=== PATIENT | female | born 1985 | race Caucasian/White ===

== ENCOUNTER 2023-04-22 11:52 | Outpatient (CLI) | payer OTHER, SELFPAY | END 2023-04-22 11:53 | disposition home or self-care (01) | PROVIDERS: Visit Provider Obstetrics & Gynecology | DX: N91.2 Amenorrhea, unspecified (principal) | CPT/HCPCS: 36415; 84702 ==

== ENCOUNTER → 2023-04-23 12:47 | Outpatient (CLI) | payer OTHER, SELFPAY ==
--- NOTE | ~2023-04-23 | US_ITS ---
EXAMINATION: US OB <=14 wk fetus w TV INDICATION: N91.2 - Amenorrhea, unspecified TECHNIQUE: Sonography of the pelvis was performed by transabdominal and transvaginal techniques. COMPARISON: Ultrasound pelvis 11/05/2004. RESULT: Uterus: 11.2 x 6.2 x 5.8 cm. Anteverted, retroflexed. Homogenous myometrium. Nabothian cysts, the la rgest measures 1.9 cm. Intrauterine gestational sac: Single present. Mean Sac Diameter: 1.25 cm, corresponding gestational age 6 week 1 days. Yolk sac: Present, not directly measured. Embryo: Not seen. Subgestational hematoma: Absent. Right ovary: 2.9 x 2.0 x 1.4 cm. Vascular flow is present. No adnexal mass. Left ovary: 4.4 x 3.6 x 3.4 cm. Vascular flow is present. 3.7 cm, circumscribed, very mildly lobul ated anechoic cystic lesion in the left ovary, thin septum versus strand-like debris, no internal orlando w, likely benign. Pelvis free fluid: Small free fluid is likely physiologic. IMPRESSION: Single, live intrauterine gestation. Estimated Gestational Age: 6 weeks, 1 days by mean gestational sac diameter. POLLY by ultrasound 2023. Reviewed, dictated and finalized at location K. IMPRESSION: Single, live intrauterine gestation. Estimated Gestational Age: 6 weeks, 1 days by mean gestational sac diameter. E DD by ultrasound 12/16/2023.
== END ==
PROVIDERS: PCP Family Medicine; Visit Provider Obstetrics & Gynecology
DX: N91.2 Amenorrhea, unspecified (principal)
CPT/HCPCS: 76801; 76817

== ENCOUNTER 2023-05-19 10:00 | Outpatient (CLI) | payer OTHER, SELFPAY ==
[2023-05-19 10:31] LABS: Hematocrit 38.3 % (37.0-47.0); Hemoglobin 12.7 g/dL (12.0-15.0); Mean Corpuscular HGB Conc 33.2 g/dl (32-36); Mean Corpuscular Hemoglobin 29.7 pg (26-34); Mean Corpuscular Volume 89.5 fl (80-100); Mean Platelet Volume 10.8 fl (7.4-10.4); Platelet Count Result 233 k/mm3 (150-375); Red Blood Count 4.28 M/mm3 (4.2-5.4); Red Cell Distribution Width 12.7 % (11.5-14.5); White Blood Count 6.5 K/mm3 (4.5-10.0)
== END 2023-05-19 10:01 | disposition home or self-care (01) ==
LOC: ANHSURGERY 10:03
PROVIDERS: PCP Family Medicine; Visit Provider Obstetrics & Gynecology
DX: Z01.818 Encounter for other preprocedural examination (principal); O02.1 Missed abortion
CPT/HCPCS: 36415; 85027; 86900; 86901

== ENCOUNTER 2023-05-21 00:09 | Day surgery (SDC) | payer OTHER, SELFPAY ==
--- NOTE | 2023-05-18 13:01 | PC.NURSE ---
Report to the Outpatient Waiting Room, entrance under the green pavilion located off [facility], at time _0730 on date __05/21/23 . Planned Procedure Time: __929 . Time changes happen often and if your time is changed the preop area will call you the afternoon before. - You and your visitor will be asked to self-screen and do not enter if you have any COVID symptoms. - A mask is optional within the hospital at this time. Patients may have clear liquids (water, carbonated beverages, clear teas, apple juice) until 3 hours prior to surgery with a maximum of 20 ounces. - No food from midnight until time of surgery - Infants may have breast milk until 4 hours before surgery, infant formula 6 hours prior to surgery. - Children will be allowed to drink immediately following surgery. If applicable, please bring a bottle or sippy cup to assist with drinking. Juice, water, soda, and popsicles are readily available. For infants on formula, please bring formula the day of surgery. Pacifiers are allowed. Take the following medications with a SIP of water the morning of surgery: __NONE DO NOT STOP ANY OF YOUR OTHER PRESCRIPTION MEDICATIONS PRIOR TO SURGERY ?EXCEPT THE FOLLOWING Medications to discontinue per physician _NONE Please no make-up, nail mongolian, hairspray, perfume, deodorant, or body powder the day of surgery. No jewelry (including any body piercings) or valuables the day of surgery, leave them at home. Please take a shower or bath the night before, or the morning of, surgery with an antibacterial soap. Wear comfortable, loose fitting clothing. Children are encouraged to wear pajamas. - Jewelry must be removed prior to entering the operating room. Rings and piercings that are not removed may be cut off. - The hospital will not accept responsibility for valuables. - Please leave all valuables, including medications, at home the day of surgery. If you are going home after surgery, a licensed livery car driver must drive you home. - NO public transportation without another adult if you receive anesthesia. - We recommend that an adult stay with you for 24 hours following discharge. - We also recommend that you do not drive, make important decision, drink alcoholic beverages, or take any drugs that were not prescribed by your health care provider for at least 24 hours after your discharge time. For Pediatric surgeries, we recommend two adults accompany the child home. Follow any additional instructions given to you from your surgeon. If you or anyone in your household have experienced Covid symptoms in the past week, please notify your surgeon or the nurse liaison at the phone number below for possible testing. Telephone instructions given to ___PATIENT and asked if any additional questions and then verbalized understanding. Patient advised to call surgeon office or pre surgery nurse liaison [phone] if any additional questions. Report to the Outpatient Waiting Room, entrance under the green pavilion located off [facility], at time on date . Planned Procedure Time: . Time changes happen often and if your time is changed the preop area will call you the afternoon before. - You and your visitor will be asked to self-screen and do not enter if you have any COVID symptoms. - A mask is optional within the hospital at this time. Patients may have clear liquids (water, carbonated beverages, clear teas, apple juice) until 3 hours prior to surgery with a maximum of 20 ounces. - No food from midnight until time of surgery - Infants may have breast milk until 4 hours before surgery, formula 6 hours prior to surgery. - Children will be allowed to drink immediately following surgery. If applicable, please bring a bottle or sippy cup to assist with drinking. Juice, water, soda, and popsicles are readily available. For infants on formula, please usman
[2023-05-18 13:21] VITALS: BMI 40.7
[2023-05-21 07:50] VITALS: BP 118/64; PULSE 87; RESP 16; TEMP 36.2; O2SAT 100
--- NOTE | 2023-05-21 08:40 | WPDANESEPPF ---
Anes - Initial Pre Proc Eval Procedure: Operation Date: 05/21/23 09:30 Proposed Procedures p Suction Dilatation and Curettage - Brian Snider MD Date/Time: 05/21/23 08:40 Surgeon: Brian Snider MD Pre Op Diagnosis: missed AB Patient Data Age: 37 Gender: F Height: 1.6 m Weight: 104.35 kg Allergies Allergy/AdvReac Type Severity Reaction Status Date / Time No Known Allergies Allergy Verified 05/21/23 08:07 Home Medications Medication Instructions Recorded Confirmed Type valacyclovir 500 mg tablet 500 mg PO TID PRN hsv 05/21/23 05/21/23 History Patient hx anesthesia problems: none Family hx anesthesia problems: none Results Review: All pre-operative results and documents have been reviewed as part of the pre-operative evaluation. [facility] Past Medical History Medical History Anxiety Epilepsy HSV-2 (herpes simplex virus 2) infection Intramural uterine fibroid 2019 Kidney stone Mammogram normal 07/15/21 benign/recommend screening Nervous breakdown at 21 yo Family History Family History Grandparent Breast cancer maternal grandmother Ovarian cancer maternal grandmother Carcinoma of colon maternal grandmother Social History Social History Smoking status: Never smoker Alcohol intake: current Alcohol use details: ONE DRINK PER MONTH Substance use: former Substance use type: marijuana Last use: 2015 Lack of Transportation: No Lack of Food: Never True Current Housing: I Have Housing Concerned About Future Housing: No Difficulty Paying Gas/Electric Bills: No Difficulty Paying for Meds: No Currently Unemployed: No Education: Associate Degree Difficulty w/ Childcare or Family Care: No Living arrangements: with family Occupation/Education: occupation 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 Gender identity (if verbalized by the patient): Female Sexual Orientation (if Verbalized by the Patient): Straight or Heterosexual Spiritual care concerns: No Anes - Eval Final PreProcedure Day of Procedure 05/21/23 08:40 Patient weight: morbidly obese Heart: regular rate and rhythm Lungs: clear to auscultation Airway: Mallampati scale class II Neurological: alert and oriented Last oral intake: >/= 8 hours ASA classification: III Emergent: no Anesthetic plan: proceed Anesthesia type and monitoring: general GIVS and standard monitoring Results Review: All pre-operative results and documents have been reviewed as part of the pre-operative evaluation. Informed Consent: The patient's anesthetic plan and its attendant risks and benefits were discussed with the patient/family/POA. Questions were solicited and answers provided to the satisfaction of the patient/family/POA.
--- NOTE | 2023-05-21 08:40 | PM.IMHP ---
H&P: HPI History of Present Illness Date/Time: 05/21/23 08:40 37-year-old 4 para 1021 presents for uterine curettage. Unplanned but desired earlier with 6 week intrauterine with no cardiac activity. She has had some cramping but no significant bleeding. Does have a history of 2 prior miscarriages and 1 vaginal delivery. Chief Complaint: Missed Review of Systems Review of Systems: All systems reviewed & are unremarkable except as noted in HPI and below PMFSH Past Medical History Medical History Anxiety Epilepsy HSV-2 (herpes simplex virus 2) infection Intramural uterine fibroid 2019 Kidney stone Mammogram normal 07/15/21 benign/recommend screening Nervous breakdown at 21 yo Family History Family History Grandparent Breast cancer maternal grandmother Ovarian cancer maternal grandmother Carcinoma of colon maternal grandmother Social History Social History Smoking status: Never smoker Alcohol intake: current Alcohol use details: ONE DRINK PER MONTH Substance use: former Substance use type: marijuana Last use: 2015 Lack of Transportation: No Lack of Food: Never True Current Housing: I Have Housing Concerned About Future Housing: No Difficulty Paying Gas/Electric Bills: No Difficulty Paying for Meds: No Currently Unemployed: No Education: Associate Degree Difficulty w/ Childcare or Family Care: No Living arrangements: with family Occupation/Education: occupation 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 Gender identity (if verbalized by the patient): Female Sexual Orientation (if Verbalized by the Patient): Straight or Heterosexual Spiritual care concerns: No Meds Home Medications and Allergies Home Medications Medication Instructions Recorded Confirmed Type valacyclovir 500 mg tablet 500 mg PO TID PRN hsv 05/21/23 05/21/23 History Allergies Allergy/AdvReac Type Severity Reaction Status Date / Time No Known Allergies Allergy Verified 05/21/23 08:07 Exam Const: General: cooperative Resp: Effort & Inspection: normal respiratory effort Auscultation: clear to auscultation bilaterally Cardio: Rate: regular rate Rhythm: regular rhythm GI: Inspection: normal to inspection Auscultation: normal bowel sounds : External Female Exam: normal external appearance Speculum Exam - Vagina: normal appearance of the vagina Speculum Exam - Cervix: normal appearance of the cervix Bimanual exam- vagina & uterus: enlarged (6-8 week size) Bimanual Exam- Adnexa, other: normal adnexae Assessment and Plan Assessment and plan (1) Missed with demise before 20 completed weeks of gestation: Code(s): O02.1 - Missed Status: Acute Assessment and Plan: Proceed with suction curettage
[2023-05-21] MEDS: LACTATED RINGERS 1,000 ML 30 ML IV CONT (08:43)
--- NOTE | 2023-05-21 08:43 | WPDHPUPDATE1 ---
History and Physical Update Update Date/Time: 05/21/23 08:43 History and Physical has been reviewed, including an updated exam of the patient. There are NO changes in the patient's condition. Risks, benefits, and alternatives have been discussed and questions answered. Patient agrees to proceed with procedure.
[2023-05-21] MEDS: ACETAMINOPHEN 500 MG TABLET 1000 MG PO (09:19)
[2023-05-21 09:48] VITALS: BP 135/90; PULSE 93; RESP 16; O2SAT 95
--- NOTE | 2023-05-21 09:49 | W.PM.PROC2 ---
Procedure Note - Detailed Date of Procedure 05/21/23 Pre-op Diagnosis missed AB Post-op Diagnosis Same Procedure Performed 1. Suction curettage Surgeon Brian Snider MD Anesthesia General Findings moderate amount of products of conception Description of Procedure patient prepped and draped in usual manner for this procedure. Cervix dilated to allow 8mm suction curette to be placed. This was then placed and tissue was removed without difficulty. Sharp curette throughout with no remaining tissue. Suction of small amount of clot some bleeding at this point. There was no further bleeding and patient tolerated procedure well. Estimated Blood Loss 50 Drains No Packing No Pathology Yes Complications No immediate complications Condition Stable Disposition PACU [facility] Billing Surgery - Charge Forward: Surgery Billing
[2023-05-21] MEDS: fentaNYL CITRATE INJ (*CRX) 100 MCG/2 ML VIAL 25 MCG IV PUSH ×4 (10:00→10:09)
[2023-05-21] MEDS: KETOROLAC 15 MG/ML VIAL (*BKC) IV PUSH (10:13)
[2023-05-21 10:15] VITALS: BP 114/66; PULSE 78; RESP 16; O2SAT 95
[2023-05-21] MEDS: RHO(D) IMMUNE GLOBULIN 300 MCG/2 ML SYRINGE IM (10:29)
[2023-05-21] MEDS: oxyCODONE HCL (*CRX) 5 MG TAB IR PO (10:39)
[2023-05-21 10:45] VITALS: BP 121/62; PULSE 73; RESP 14
[2023-05-21 11:15] VITALS: BP 124/69; PULSE 78; RESP 14
[2023-05-21 11:40] VITALS: BP 116/71; PULSE 75; RESP 14
== END 2023-05-21 11:53 | disposition home or self-care (01) ==
PROVIDERS: PCP Family Medicine; Visit Provider Obstetrics & Gynecology
PROC: (CPT 59820; principal; 2023-05-21 09:30)
DX: O02.1 Missed abortion (principal); F41.9 Anxiety disorder, unspecified; B00.9 Herpesviral infection, unspecified; F12.90 Cannabis use, unspecified, uncomplicated
CPT/HCPCS: 59820; 36415; 85027; 85461; 86850; 86900; 86901; 88305; 90384; A9270; J1885; J2250; J2704; J2790; J3010; J7120

== ENCOUNTER 2024-08-10 08:51 | Outpatient (CLI) | payer BC, SELFPAY ==
--- NOTE | ~2024-08-10 | MMUS_ITS ---
EXAMINATION: MM diagnostic diana BI w taylor, US breast BI limited HISTORY: Breast lump TECHNIQUE: 3-D tomosynthesis images of the breasts were performed and synthetic 2-D images were gener ated. CAD analysis was submitted and interpreted. High resolution limited bilateral breast ultrasound was performed. COMPARISON: 01/20/2024, recent MRI dated 06/20/2024 BREAST PARENCHYMAL COMPOSITION:Not Dense. The breasts are almost entirely fatty FINDINGS: MAMMOGRAPHIC FINDINGS: Parenchymal pattern of the breasts is unchanged from prior mammogram. No suspicious mass lesion or di stortion seen. No suspicious microcalcification. ULTRASOUND: Scattered areas of concern at the left breast 3:00 position, and right breast 9:00 and 12:00 position s was performed. No sonographic lesion identified in the regions scanned. No solid or cystic lesion i dentified. No dilated ducts evident. IMPRESSION: No mammographic or sonographic abnormalities are seen. Stable radiographic examination since 01/20/20 24. Please note that negative mammography/sonography should not preclude biopsy of a suspicious lesio n seen on recent breast MR. Correlation with the prior MR examination and report is recommended. BI-RADS Category 1: Negative Reviewed, dictated and finalized at location . ESSIONAL NURSING TUTOR IMPRESSION: No mammographic or sonographic abnormalities are seen. Stable radiographic exa mination since 01/20/2024. Please note that negative mammography/sonography shou ld not preclude biopsy of a suspicious lesion seen on recent breast MR. Correla tion with the prior MR examination and report is recommended. BI-RADS Category 1: Negative
== END 2024-08-10 08:52 | disposition home or self-care (01) ==
LOC: MICIMG 08:52
PROVIDERS: PCP Surgery; Visit Provider Surgery
DX: N63.25 Unspecified lump in the left breast, overlapping quadrants (principal)
CPT/HCPCS: 76642; 77062; 77066; G0279

== ENCOUNTER 2024-12-08 10:49 | Outpatient (CLI) | payer BC, SELFPAY ==
--- NOTE | ~2024-12-08 | MR_ITS ---
EXAMINATION: MR breast BI wo/w con INDICATION: Six-month follow-up TECHNIQUE: Axial VIBRANT pre and dynamic post contrast, Sagittal VIBRANT post contrast, Axial T2 STIR ASSET COMPARISON: 06/20/2024 CONTRAST: Multihance, 20 cc BREAST COMPOSITION: Scattered fibroglandular tissue FINDINGS: RIGHT BREAST: There is mild background parenchymal enhancement. There is some patchy probable normal fibroglandular enhancement in the right breast, which appears to be similar to prior exam. No patholo gically enlarged axillary or internal mammary lymph nodes are identified. LEFT BREAST: There is mild background parenchymal enhancement. No abnormal enhancement is present aft er contrast administration. No pathologically enlarged axillary or internal mammary lymph nodes are i dentified. IMPRESSION: Patchy nonmasslike enhancement in the right breast probably represent fibroglandular tissue, similar in appearance overall to prior exam. No overt progression or suspicious lesion evident. Additional s ix-month follow-up MR advised to assure continued stability. BI-RADS category 3, probably benign findings. Reviewed, dictated and finalized at location [facility]ICATING SUPERVISOR IMPRESSION: Patchy nonmasslike enhancement in the right breast probably represent fibrogla ndular tissue, similar in appearance overall to prior exam. No overt progressio n or suspicious lesion evident. Additional six-month follow-up MR advised to as sure continued stability. BI-RADS category 3, probably benign findings.
--- OUTSIDE RECORDS SUMMARY | 2024-12-08 12:28 | XMS_ITS | Patient Health Summary ---
Author Organization [facility] [employer] Address [address] [place] [address] Care Team Providers Care Chief Engineer Drilling And Recovery Name Role Phone Doris Ruano DO Primary Care Provider [phone] Note from [facility],non-owned Affiliates and Associated Physician Practices is amultiple site organization consisting of ambulatory clinics and hospital sitesin [place], [place], [place] and [place]. This disclosure is being madepursuant to the Care Everywhere program and may not contain all information available regarding this patient. Last updated 18.[facility] [employer] Allergies No known active allergies Medications * Be aware that medications may not be up to date on this document. Alwaysverify current medications with the patient. 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 History of kidney stones 10/04/2024 Uterine leiomyoma 10/04/2024 Social History Tobacco Use Types Packs/Day Years Used Date Smoking Tobacco: Never Smokeless Tobacco: Never Tobacco Cessation:Counseling Given: No Alcohol Use Standard Drinks/Week Comments Never 0 (1 standard drink = 0.6 oz pur e alcohol) Sex and Gender Information Value Date Recorded Sex Assigned at Not on file Gender Identity Not on file Sexual Orientation Not on file Last Filed Vital Signs Vital Sign Reading Time Taken Comments Blood Pressure 107/72 10/03/2024 10:44 AM LIME BOILER Pulse 70 10/03/2024 10:44 AM LIME BOILER Temperature - - Respiratory Rate 18 10/03/2024 10:44 AM LIME BOILER Oxygen Saturation - - Inhaled Oxygen Concentration - - Weight 108.9 kg (240 lb) 10/03/2024 10:44 AM LIME BOILER Height 160 cm (5' 3 ) 10/03/2024 10:44 AM LIME BOILER Body Mass Index 42.51 10/03/2024 10:44 AM LIME BOILER Procedures * ANTIPHOSPHOLIPID ANTIBODY PANEL(Performed 10/03/2024) Results * ANTIPHOSPHOLIPID ANTIBODY PANEL (10/03/2024 12:25 PM LIME BOILER) [facility] Cardiolipin Antibody IgG <2.0 GPL-U/mL [facility] Comment: Value Interpretation ----- < 20.0 Antibody not detected > or = 20.0 Antibody detected The antiphospholipid antibody syndrome (APS) is a clinical-pathologic correlation that includes a clinical event (e.g. arterial or venous thrombosis, morbidity) and persistent positive antiphospholipid antibodies (IgM, IgG Cardiolipin or b2GPI antibodies greater than the 99th percentile; or a lupus anticoagulant). International consensus guidelines for APS suggest waiting at least 12 weeks before retesting to confirm antibody persistence. The [facility] immunological classification criteria for systemic lupus erythematosus (SLE) include testing for isotype IgA, which has yet to be incorporated into APS criteria. Low level antiphospholipid antibodies may sometimes be detected in the setting of infection, drug therapy or aging. For additional information, please refer to http://education.Hostmonster/faq/YWA037 (This link is being provided for informational/ educational purposes only.) Cardiolipin Antibody IgM <2.0 MPL-U/mL [facility] Comment: Value Interpretation ----- < 20.0 Antibody not detected > or = 20.0 Antibody detected The antiphospholipid antibody syndrome (APS) is a clinical-pathologic correlation that includes a clinical event (e.g. arterial or venous thrombosis, morbidity) and persistent positive antiphospholipid antibodies (IgM, IgG Cardiolipin or b2GPI antibodies greater than the 99th percentile; or a lupus anticoagulant). International consensus guidelines for APS suggest waiting at least 12 weeks before retesting to confirm antibody persistence. The [facility] immunological classification criteria for systemic lupus erythematosus (SLE) include testing for isotype IgA, which has yet to be incorporated into APS criteria. Low level antiphospholipid antibodies may sometimes be detected in the setting of infection, drug therapy or aging. For additional information, please refer to http://Instacover.Hostmonster/faq/UDG787 (This link is being provided for informational/ educational purposes only.) Cardiolipin Antibody IgA <2.0 APL-U/mL [facility] Comment: Value Interpretation ----- < 20.0 Antibody not detected > or = 20.0 Antibody detected The antiphospholipid antibody syndrome (APS) is a clinical-pathologic correlation that includes a clinical event (e.g. arterial or venous thrombosis, morbidity) and persistent positive antiphospholipid antibodies (IgM, IgG Cardiolipin or b2GPI antibodies greater than the 99th percentile; or a lupus anticoagulant). International consensus guidelines for APS suggest waiting at least 12 weeks before retesting to confirm antibody persistence. The [facility] immunological classification criteria for systemic lupus erythematosus (SLE) include testing for isotype IgA, which has yet to be incorporated into APS criteria. Low level antiphospholipid antibodies may sometimes be detected in the setting of infection, drug therapy or aging. For additional information, please refer to http://[facility] [facility]/faq/FIU508 (This link is being provided for informational/ educational purposes only.) Lupus Anticoagulant NOT DETECTED [facility] Comment: A Lupus Anticoagulant is not detected. For more information on this test, go to: http://Instacover.Hostmonster/faq/FRF38z1 (This link is being provided for informational/ educational purposes only.) This interpretation is based on the following test results: PTT LA Screen 32 < OR = 40 sec [facility] dRVVT Screen 43 < OR = 45 sec [facility] Beta-2 Glycoprotein I Antibody IgG <2.0 U/mL [facility] Comment: Value Interpretation ----- < 20.0 Antibody not detected > or = 20.0 Antibody detected The antiphospholipid antibody syndrome (APS) is a clinical-pathologic correlation that includes a clinical event (e.g. arterial or venous thrombosis, morbidity) and persistent positive antiphospholipid antibodies (IgM, IgG Cardiolipin or b2GPI antibodies greater than the 99th percentile; or a lupus anticoagulant). International consensus guidelines for APS suggest waiting at least 12 weeks before retesting to confirm antibody persistence. The [facility] immunological classification criteria for systemic lupus erythematosus (SLE) include testing for isotype IgA, which has yet to be incorporated into APS criteria. Low level antiphospholipid antibodies may sometimes be detected in the setting of infection, drug therapy or aging. For additional information, please refer to http://Instacover.Hostmonster/faq/DSK420 (This link is being provided for informational/ educational purposes only.) Beta-2 Glycoprotein I Antibody IgA <2.0 U/mL [facility] Comment: Value Interpretation ----- < 20.0 Antibody not detected > or = 20.0 Antibody detected The antiphospholipid antibody syndrome (APS) is a clinical-pathologic correlation that includes a clinical event (e.g. arterial or venous thrombosis, morbidity) and persistent positive antiphospholipid antibodies (IgM, IgG Cardiolipin or b2GPI antibodies greater than the 99th percentile; or a lupus anticoagulant). International consensus guidelines for APS suggest waiting at least 12 weeks before retesting to confirm antibody persistence. The [facility] immunological classification criteria for systemic lupus erythematosus (SLE) include testing for isotype IgA, which has yet to be incorporated into APS criteria. Low level antiphospholipid antibodies may sometimes be detected in the setting of infection, drug therapy or aging. For additional information, please refer to http://Instacover.Hostmonster/faq/HKC904 (This link is being provided for informational/ educational purposes only.) Beta-2 Glycoprotein I Antibody IgM <2.0 U/mL [facility] Comment: Value Interpretation ----- < 20.0 Antibody not detected > or = 20.0 Antibody detected The antiphospholipid antibody syndrome (APS) is a clinical-pathologic correlation that includes a clinical event (e.g. arterial or venous thrombosis, morbidity) and persistent positive antiphospholipid antibodies (IgM, IgG Cardiolipin or b2GPI antibodies greater than the 99th percentile; or a lupus anticoagulant). International consensus guidelines for APS suggest waiting at least 12 weeks before retesting to confirm antibody persistence. The [facility] immunological classification criteria for systemic lupus erythematosus (SLE) include testing for isotype IgA, which has yet to be incorporated into APS criteria. Low level antiphospholipid antibodies may sometimes be detected in the setting of infection, drug therapy or aging. For additional information, please refer to http://education.Adnexus.VideoNot.es/faq/XWA287 (This link is being provided for informational/ educational purposes only.) Test Performed at: [facility] [address] [address] [facility] Zahraa ALBRECHT 10/03/2024 12:2 5 PM LIME BOILER 10/03/2024 12:28 PM LIME BOILER Yvette Long MD LAB - SEROLOGY ORDER [facility] [id number] [place] [address] Care Teams Chief Engineer Drilling And Recovery Relationship Specialty Start Date End Date Doris Ruano DO [address] [place] [address] PCP - General Family Medicine 04/04/24
--- OUTSIDE RECORDS SUMMARY | 2024-12-08 12:28 | XMS_ITS | Patient Health Record ---
Author Organization 1 OF Vikki fernandez [facility] Address [address] [place] [address] Care Team Providers Care Oracle Database Administrator Name Role Phone Kiana Paiz Primary Care Provider UnavailVinicio Hernandez Unavailable Reason For Referral No Information Medications Medication SIG (Take, Route, Fr equency, Duration) Notes Start Date End Date Status Ibuprofen 800 MG 1 tablet with food o r milk as needed Orally Three times a day 03/25/2019 Active Social History Tobacco Use: Social History Observation Description Date Details (start date - stop date) Never Smoker NA - NA Tobacco Use/Smoking Question Answer Notes Are you a nonsmoker Plan Of Treatment No Information Insurance Providers Payer Name Payer Address Payer Phone Subscriber Number Group Number Insured Name Patient Relationship to Insured Coverage Start Date Coverage End Date [facility] [address] [place] [address] [id number] Dajuan James Spouse - patient is the spouse of the insured Medical (General) History Medical History History ICD Code Vein Problems Surgical History Surgery Date(Month/Year)
--- OUTSIDE RECORDS SUMMARY | 2024-12-08 12:28 | XMS_ITS | Clinical Summary ---
Author Organization [facility] Address [address] [place] [address] Care Team Providers Care Clinical Care Manager Name Role Phone Doris Ruano DO Primary Care Provider [phone] Source Comments [facility],non-owned Affiliates and Associated Physician Practices is amultiple site organization consisting of ambulatory clinics and hospital sitesin [place], [place], [place] and [place]. This disclosure is being madepursuant to the Care Everywhere program and may not contain all information available regarding this patient. Last updated 18.[facility] Allergies No known active allergies Medications * Be aware that medications may not be up to date on this document. Alwaysverify current medications with the patient. 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 Her first was TAB. She had term delivery of a healthy 9 year old by . All subsequent pregnancies were with the same FOB who has a normal daughter. Her later SAB's were 10, 12 weeks and missed caught on early US. Chromosomes done on POC was 46XX. There is no family history of genetic issues. She does have severe metrorrhagia and twice was scheduled for ablation and tubal ligation. There is note of a small uterine fibroid in the cavity. We discussed several issues to address. She technically meets criteria for recurrent loss. It is unclear if uterine environment is playing a big role and additional evaluation of her cavity and potential treatment would be beneficial. Ideally, this could be done with LOUISA who can then also discuss potential role of IVF-surrogate, if the cavity is beyond repair. We also discussed age related risk of aneuploidy and elevated risk for SAB and infertility. She will see genetic counselor to discuss maternal and paternal evaluation and carrier panels. She has no medical history of significance. Routine screening labs are not warranted and not drawn today. She has had normal CBC, CMP, hgba1c, thrombophilia workup in the past that are negative. APAS was drawn. If she pursues and is successful getting through the first trimester, I anticipate she will do well. She will need further discussion about risk of GDM and early screening and discussion about mode of delivery. History of kidney stones 10/04/2024 Assessment & Plan (10/04/2024 9:28 AM [facility]): She is at risk of recurrence. Uterine leiomyoma 10/04/2024 Encounters Date Type Department Care Team Description 10/10/2024 Telephone [facility] MATERNAL/ EVALUATION UNIT [address] [place] [address] Nelly Ko GC Referral 10/03/2024 11:30 AM EMERGENCY ROOM ORDERLY - 10/03/2024 11:59 PM EMERGENCY ROOM ORDERLY Hospital Encounter [facility] [address] [place] [id number] Yvette Long MD Discharge Disposition: Home or Self Care 10/03/2024 10:30 AM EMERGENCY ROOM ORDERLY - 10/03/2024 11:29 AM EMERGENCY ROOM ORDERLY Hospital Encounter [facility] [address] [place] [id number] Yvette Long MD Discharge Disposition: Home or Self Care from Last 3 Months Family History Medical History Relation Name Comments Cancer - Breast Maternal Grandmother Cancer - Ovarian Maternal Grandmother Brain Tumor Paternal Grandmother Cancer - Colon Paternal Grandmother Diabetes; unknown type Paternal Grandmother Relation Name Status Comments Maternal Grandmother Paternal Grandmother Social History Tobacco Use Types Packs/Day Years [...] Comments Blood Pressure 107/72 10/03/2024 10:44 AM EMERGENCY ROOM ORDERLY Pulse 70 10/03/2024 10:44 AM EMERGENCY ROOM ORDERLY Temperature - - Respiratory Rate 18 10/03/2024 10:44 AM EMERGENCY ROOM ORDERLY Oxygen Saturation - - Inhaled Oxygen Concentration - - Weight 108.9 kg (240 lb) 10/03/2024 10:44 AM EMERGENCY ROOM ORDERLY Height 160 cm (5' 3 ) 10/03/2024 10:44 AM EMERGENCY ROOM ORDERLY Body Mass Index 42.51 10/03/2024 10:44 AM EMERGENCY ROOM ORDERLY Plan of Treatment Health Maintenance Due Date Last Done Comments LIPID TESTING 1984 PAP SMEAR 1984 HIV SCREENING 1999 HEPATITIS C SCREENING 07/13/2002 DTAP/TDAP/TD VACCINES (1 - Tdap) 2003 HEPATITIS B VACCINE (1 of 3 - 19+ 3-dose series) 2003 COVID-19 VACCINE (3 - 2023- season) 2024 10/12/2020, 09/21/2020 DEPRESSION SCREENING 10/05/2024 MAMMOGRAM 01/19/2026 01/20/2024, 01/03, 07/24/2022, Additional history exists ZOSTER VACCINE (1 of 2) 2034 INFLUENZA VACCINE Completed 06/28/2024, , 12/26/2022, Additional history exists HIB VACCINE Aged Out No longer eligi ble based on patient's age to complete this topic HPV VACCINE Aged Out No longer eligi ble based on patient's age to complete this topic MENINGOCOCCAL (Group B) VACCINE Aged Out No longer eligible based on patient's age to complete this topic MENINGOCOCCAL VACCINE Aged Out No melina tianna eligible based on patient's age to complete this topic PNEUMOCOCCAL VACCINE Aged Out No long er eligible based on patient's age to complete this topic Procedures Procedure Name Priority Date/Time Associated Diagnosis Comments ANTIPHOSPHOLIPID ANTIBODY PANEL 10/03/2024 12:25 PM EMERGENCY ROOM ORDERLY from Last 3 Months Results * ANTIPHOSPHOLIPID ANTIBODY PANEL (10/03/2024 12:25 PM EMERGENCY ROOM ORDERLY) Cardiolipin Antibody IgG <2.0 GPL-U/mL [facility] Comment: [...] aging. For additional information, please refer to http://education.Vantage Analytics/faq/WIQ199 (This link is being provided for informational/ [...] aging. For additional information, please refer to http://Forge Medical/WellTrackOneq/YTJ342 (This link is being provided for informational/ [...] aging. For additional information, please refer to http://[employer]/WellTrackOneq/PBB651 (This link is being provided for informational/ educational purposes only.) Lupus Anticoagulant NOT DETECTED [facility] Comment: A Lupus Anticoagulant is not detected. For more information on this test, go to: http://Cintric.Vantage Analytics/faq/XBT33l3 (This link is being provided for informational/ [...] aging. For additional information, please refer to http://Cintric.Air [employer]otics.Next Points/faq/JVA756 (This link is being provided for informational/ [...] aging. For additional information, please refer to http://Cintric.Vantage Analytics/faq/GOY966 (This link is being provided for informational/ [...] aging. For additional information, please refer to http://education.Air Robotics.Next Points/faq/FFW624 (This link is being provided for informational/ educational purposes only.) Test Performed at: [facility] [id number] [place] [address] CASS Zahraa ALBRECHT 10/03/2024 12:2 5 PM EMERGENCY ROOM ORDERLY 10/03/2024 12:28 PM EMERGENCY ROOM ORDERLY Yvette Long MD LAB - SEROLOGY ORDER [facility] [address] [place] [address] from Last 3 Months Care Teams Clinical Care Manager Relationship Specialty Start Date End Date Doris Ruano DO [address] [place] [id number] PCP - General Family Medicine 04/04/24
--- OUTSIDE RECORDS SUMMARY | 2024-12-08 12:28 | XMS_ITS | Referral Summary ---
Author Organization [facility] Address [address] [place] [address] Care Team Providers Care Library Technician Name Role Phone Doris Ruano DO Primary Care Provider [phone] Source Comments [facility],non-owned Affiliates and Associated Physician Practices is amultiple site organization consisting of ambulatory clinics and hospital sitesin [place], [place], [place] and [place]. This disclosure is being madepursuant to the Care Everywhere program and may not contain all information available regarding this patient. Last updated 18.[facility] Encounters Date Type Department Care Team Description 10/10/[address] [facility] MATERNAL/ EVALUATION UNIT [facility] [place] [address] Nelly Ko GC Referral 10/03/2024 11:30 AM [facility] [employer] [facility] [employer] - 10/03/2024 11:59 PM [facility] [employer] Hospital Encounter [facility] [address] [place] [address] Yvette Long MD Discharge Disposition: Home or Self Care 10/03/2024 10:30 AM [facility] [employer] - 10/03/2024 11:29 AM [facility] [employer] Hospital Encounter [facility] [address] [place] [address] Yvette Long MD Discharge Disposition: Home or Self Care from Last 3 Months Allergies No known active allergies Medications * Be aware that medications may not be up to date on this document. Alwaysverify current medications with the patient. Medication Sig Dispensed Refills Start Date End Date Status multivitamin daily tablet Take 1 (one) tablet by mouth daily with food Active vitamin D, ergocalciferol, (Drisdol) 1.25 MG (28634 UT) capsule Take 1 (one) capsule by mouth every 30 days Active Active Problems Problem Noted Date Diagnosed Date History of multiple miscarriages 10/04/2024 Assessment & Plan (10/04/2024 9:29 AM [facility] [employer]): Yesenia is desiring . Her first was [...] 10/04/2024 Assessment & Plan (10/04/2024 9:28 AM [facility] [employer]): She is at risk of recurrence. Uterine leiomyoma 10/04/2024 Social History Tobacco Use [...] Comments Blood Pressure 107/72 10/03/2024 10:44 AM [facility] [employer] Pulse 70 10/03/2024 10:44 AM [facility] [employer] Temperature - - Respiratory Rate 18 10/03/2024 10:44 AM [facility] [employer] Oxygen Saturation - - Inhaled Oxygen Concentration - - Weight 108.9 kg (240 lb) 10/03/2024 10:44 AM [facility] [employer] Height 160 cm (5' 3 ) 10/03/2024 10:44 AM [facility] [employer] Body Mass Index 42.51 10/03/2024 10:44 AM [facility] [employer] Plan of Treatment Not on file Procedures Procedure Name Priority Date/Time Associated Diagnosis Comments ANTIPHOSPHOLIPID ANTIBODY PANEL 10/03/2024 12:25 PM [facility] [employer] from Last 3 Months Results * ANTIPHOSPHOLIPID ANTIBODY PANEL (10/03/2024 12:25 PM [facility] [employer]) Cardiolipin Antibody IgG <2.0 GPL-U/mL [facility] Comment: [...] aging. For additional information, please refer to http://education.RupeeTimes/faq/KLX635 (This link is being provided for informational/ [...] aging. For additional information, please refer to http://Project 10K.RupeeTimes/faq/YOE626 (This link is being provided for informational/ [...] aging. For additional information, please refer to http://Project 10K.RupeeTimes/faq/OOM066 (This link is being provided for informational/ educational purposes only.) Lupus Anticoagulant NOT DETECTED [facility] Comment: A Lupus Anticoagulant is not detected. For more information on this test, go to: http://Project 10K.RupeeTimes/faq/DAO76f7 (This link is being provided for informational/ [...] aging. For additional information, please refer to http://education.RupeeTimes/faq/FGY547 (This link is being provided for informational/ [...] aging. For additional information, please refer to http://Project 10K.RupeeTimes/faq/CWT384 (This link is being provided for informational/ [...] aging. For additional information, please refer to http://Project 10K.RupeeTimes/faq/FQA782 (This link is being provided for informational/ educational purposes only.) Test Performed at: [facility] [address] [address] CASS ALBRECHT 10/03/2024 12:2 5 PM CONTROL CL[facility] [employer] 10/03/2024 12:28 PM [facility] [employer] Yvette Long MD LAB - SEROLOGY ORDER [facility] [address] [place] [address] from Last 3 Months Care Teams Library Technician Relationship Specialty Start Date End Date Doris Ruano DO [address] [place] [address] PCP - General Family Medicine 04/04/24
== END 2024-12-08 10:50 | disposition home or self-care (01) ==
LOC: ANHIMG 10:52
PROVIDERS: PCP Surgery; Visit Provider Physician Assistant Surgical
DX: R92.8 Other abnormal and inconclusive findings on diagnostic imaging of breast (principal); N63.25 Unspecified lump in the left breast, overlapping quadrants; N63.15 Unspecified lump in the right breast, overlapping quadrants
CPT/HCPCS: 77049; A9579; C8908

== ENCOUNTER 2025-06-07 10:23 | Outpatient (CLI) | payer BC, SELFPAY ==
--- OUTSIDE RECORDS SUMMARY | 2025-06-07 11:46 | XMS_ITS | Encounter Summary ---
Author Organization [facility] Address [address] [place] [address] Care Team Providers Care Crushing Machine Operator Name Role Phone Doris Ruano DO Primary Care Provider [phone] Encounter Details Date Type Department Care Team (Late st Contact Info) Description 09/29/2022 [employer] Direct Message Enc [facility] Medical [facility] Family Medicine - [place] [address] [facility], [address] [place] [phone] Doris Ruano DO [address] [employer], [place] [phone] Right hand pain Social History Tobacco Use Types Packs/Day Years Used Date Smoking Tobacco: Never Smokeless Tobacco: Never Alcohol Use Standard Drinks/Week Comments No 0 (1 standard drink = 0.6 oz pur e alcohol) PHQ-2 Answer Date Recorded PHQ-2 Score - If the patient scores above 3, please move on to questions 3-9 4 08/25/2022 Comments No Sex and Gender Information Value Date Recorded Sex Assigned at Female 10/23/2022 6:59 AM DISBURSEMENT CLERK Legal Sex Female 5:47 PM CDT Gender Identity Female 10/23/2022 6:59 AM DISBURSEMENT CLERK Sexual Orientation Straight 10/23/2022 6: 59 AM DISBURSEMENT CLERK COVID-19 Exposure Response Date Recorded In the last 10 days, have yo u been in contact with someone who was confirmed or suspected to have Coronavirus/COVID-19? No / Unsure 09/23/2022 2:28 PM DISBURSEMENT CLERK documented as of this encounter Functional Status * RETIRED Are you deaf or do you have serious difficulty hearing Answer Date of Assessment Author Status No 06/26/2019 5:00 PM CDT Activ e * RETIRED Are you blind or do you have serious difficulty seeing, even when wearing glasses? Answer Date of Assessment Author Status No 06/26/2019 5:00 PM CDT Activ e * Do you have serious difficulty walking or climbing stairs? Answer Date of Assessment Author Status No 06/26/2019 5:00 PM GEMT Kerri Hastings RN Active * Do you have difficulty dressing or bathing? Answer Date of Assessment Author Status No 06/26/2019 5:00 PM GEMT Kerri Hastings RN Active * Because of a physical, mental, or emotional condition, do you have difficulty doing errands alone such as visiting a doctor's office or shopping? Answer Date of Assessment Author Status No 06/26/2019 5:00 PM Kerri Madden RN Active documented as of this encounter Mental Status * Because of a physical, mental, or emotional condition, do you have serious difficulty concentrating, remembering, or making decisions? Answer Entry Date Author Status No 06/26/2019 5:00 PM Kerri Madden RN Active documented in this encounter Plan of Treatment Not on file documented as of this encounter Visit Diagnoses Not on filedocumented in this encounter Additional Health Concerns Assessment Noted Time PHQ-9 Depression Total Score: 17 022 11:23 AM DISBURSEMENT CLERK documented as of this encounter Care Teams Crushing Machine Operator Relationship Specialty Start Date End Date Doris Ruano DO [address] [place] [address] PCP - General FAMILY PRACTICE 08/25/22 documented as of this encounter
--- OUTSIDE RECORDS SUMMARY | 2025-06-07 11:46 | XMS_ITS | Clinical Summary ---
Author Organization [email or web address] Address [address] [place] [address] Care Team Providers Care Cable Splicing Technician Name Role Phone Doris Ruano DO Primary Care Provider [phone] Source Comments [email or web address],non-owned Affiliates and Associated Physician Practices is amultiple site organization consisting of ambulatory clinics and hospital sitesin [place], [place], [place] and [place]. This disclosure is being madepursuant to the Care Everywhere program and may not contain all information available regarding this patient. Last updated 18.[email or web address] Allergies No known active allergies Medications * Be aware that medications may not be up to date on this document. Alwaysverify current medications with the patient. multivitamin daily tablet Take 1 (one) tablet by mouth daily with food Active vitamin D, ergocalciferol, (Drisdol) 1.25 MG (79778 UT) capsule Take 1 (one) capsule by mouth every 30 days Active Active Problems Problem Noted Date Diagnosed Date History of multiple miscarriages 10/04/2024 Assessment & Plan (10/04/2024 9:29 AM DRILLING MACHINE RUNNER): Yesenia is desiring . Her first was [...] 10/04/2024 Assessment & Plan (10/04/2024 9:28 AM DRILLING MACHINE RUNNER): She is at risk of recurrence. Uterine leiomyoma 10/04/2024 Family History Medical History Relation Name Comments [...] drink = 0.6 oz pur e alcohol) Comments Unknown Sex and Gender Information Value Date Recorded Sex Assigned at Not on file Legal Sex Female 5:35 AM DRILLING MACHINE RUNNER Gender Identity Not on file Sexual Orientation Not on file Last Filed Vital Signs Vital Sign Reading Time Taken Comments Blood Pressure 107/72 10/03/2024 10:44 AM DRILLING MACHINE RUNNER Pulse 70 10/03/2024 10:44 AM DRILLING MACHINE RUNNER Temperature - - Respiratory Rate 18 10/03/2024 10:44 AM DRILLING MACHINE RUNNER Oxygen Saturation - - Inhaled Oxygen Concentration - - Weight 108.9 kg (240 lb) 10/03/2024 10:44 AM DRILLING MACHINE RUNNER Height 160 cm (5' 3) 10/03/2024 10:44 AM DRILLING MACHINE RUNNER Body Mass Index 42.51 10/03/2024 10:44 AM DRILLING MACHINE RUNNER Plan of Treatment Health Maintenance Due Date Last Done Comments LIPID TESTING 1984 HIV SCREENING 1999 HEPATITIS C SCREENING 07/13/2002 DTAP/TDAP/TD VACCINES (1 - Tdap) 2003 HEPATITIS B VACCINE (1 of 3 - 19+ 3-dose series) 2003 PAP SMEAR 2005 HPV VACCINE (1 - 3-dose SCDM series) 2011 DEPRESSION SCREENING 10/05/2024 COVID-19 VACCINE (3 - 2024- season) 2025 10/12/2020, 09/21/2020 INFLUENZA VACCINE (#1) 2025 , 07/05/2023, 12/26/2022, Additional history exists MAMMOGRAM 01/19/2026 01/20/2024, 01/03, 07/24/2022, Additional history exists ZOSTER VACCINE (1 of 2) 2034 HIB VACCINE Aged Out No longer eligi ble based on patient's age to complete this topic MENINGOCOCCAL (Group B) VACCINE SHARED DECISION-MAKING Aged Out No longer eligible based on patient's age to complete this topic MENINGOCOCCAL GROUPS A/C/Y/W VACCINE Aged Out No longer eligible based on patient's age to complete this topic PNEUMOCOCCAL VACCINE Aged Out No long er eligible based on patient's age to complete this topic Insurance [employer] [place] [address] [facility] Address: [facility] [address] [place] [address] Care Teams Cable Splicing Technician Relationship Specialty Start Date End Date Doris Ruano DO [address] [place] [address] PCP - General Family Medicine 04/04/24
--- OUTSIDE RECORDS SUMMARY | 2025-06-07 11:47 | XMS_ITS | Encounter Summary ---
Author Organization [facility] Address [address] [place] [address] Care Team Providers Care Prototype Machine Operator Name Role Phone Kiana Paiz Primary Care Provider [phone] Doris Ruano DO Primary Care Provider [phone] Encounter Details Date Type Department Care Team (Late st Contact Info) Description 07/15/2021 Stitch Message [facility] Patient Accounts [address] [place] [address] [facility] Provider Financial assistance application Social History Tobacco Use Types Packs/Day Years Used Date Smoking Tobacco: Never Smokeless Tobacco: Never Alcohol Use Standard Drinks/Week Comments No 0 (1 standard drink = 0.6 oz pur e alcohol) Comments No Sex and Gender Information Value Date Recorded Sex Assigned at Female 10/23/2022 6:59 AM HAND FRETTED INSTRUMENT MAKER Legal Sex Female 5:47 PM CDT Gender Identity Female 10/23/2022 6:59 AM HAND FRETTED INSTRUMENT MAKER Sexual Orientation Straight 10/23/2022 6: 59 AM HAND FRETTED INSTRUMENT MAKER COVID-19 Exposure Response Date Recorded In the last month, have you been in contact with someone who was confirmed or suspected to have Coronavirus / COVID-19? No / Unsure 07/15/2021 3:03 PM CDT documented as of this encounter Functional Status [...] 06/26/2019 5:00 PM Kerri Madden RN Active * Do you have difficulty dressing or bathing? Answer Date of Assessment Author Status No 06/26/2019 5:00 PM Kerri Madden RN Active * Because of a physical, [...] Diagnoses Not on filedocumented in this encounter Care Teams Prototype Machine Operator Relationship Specialty Start Date End Date Kiana Paiz PA PCP - General PHYSICIAN WEATHERSEAL TECHNICIAN 11/18/18 08/24/22 Doris Ruano DO [address] [place] [address] PCP - General FAMILY PRACTICE 08/25/22 documented as of this encounter
--- OUTSIDE RECORDS SUMMARY | 2025-06-07 11:47 | XMS_ITS | Encounter Summary ---
Author Organization [facility] Address [address] [place] [address] Care Team Providers Care Bank Clerk Name Role Phone Doris Ruano DO Primary Care Provider Encounter Details Date Type Department Care Team (Late st Contact Info) Description 02/11/2025 DoubleMapt Message Enc [facility] Medical Group Family Medicine - [place] [address] [facility], [address] [place] [phone] Doris Ruano DO [address] [place], [place] [phone] Headaches and feeling of indigestion Social History Tobacco Use Types Packs/Day Years Used Date Smoking Tobacco: Never Passive Smoke Exposure: Never Smokeless Tobacco: Never Comments:na Alcohol Use Standard Drinks/Week Comments No 0 (1 standard drink = 0.6 oz pur e alcohol) PHQ-2 Answer Date Recorded Patient Health Questionnaire-2 Score 2 01/03/2025 Comments No Sex and Gender Information Value Date Recorded Sex Assigned at Female 10/23/2022 6:59 AM OUTSIDE PARTS SALESMAN Legal Sex Female 5:47 PM CDT Gender Identity Female 10/23/2022 6:59 AM OUTSIDE PARTS SALESMAN Sexual Orientation Straight 10/23/2022 6: 59 AM OUTSIDE PARTS SALESMAN documented as of this encounter Functional Status [...] Author Status No 06/26/2019 5:00 PM CDT Kerri Hastings RN Active * Do you have difficulty dressing or bathing? Answer Date of Assessment Author Status No 06/26/2019 5:00 PM CDT Kerri Hastings RN Active * Because of a physical, mental, or emotional condition, do you have difficulty doing errands alone such as visiting a doctor's office or shopping? Answer Date of Assessment Author Status No 06/26/2019 5:00 PM CDT Kerri Hastings RN Active documented as of this encounter Mental Status * Because of a physical, mental, or emotional condition, do you have serious difficulty concentrating, remembering, or making decisions? Answer Entry Date Author Status No 06/26/2019 5:00 PM CDT Kerri Hastings RN Active documented in this encounter Plan of Treatment Not on file documented as of this encounter Visit Diagnoses Not on filedocumented in this encounter Additional Health Concerns Assessment Noted Time PHQ-9 Depression Total Score: 14 025 8:33 AM CDT documented as of this encounter Care Teams Bank Clerk Relationship Specialty Start Date End Date Doris Ruano DO [address] [place] [address] PCP - General FAMILY PRACTICE 08/25/22 documented as of this encounter
--- OUTSIDE RECORDS SUMMARY | 2025-06-07 11:47 | XMS_ITS | Encounter Summary ---
Author Organization [facility] Address [address] [place] [address] Care Team Providers Care Pulp Refiner Operator Name Role Phone Doris Ruano DO Primary Care Provider [phone] Encounter Details Date Type Department Care Team (Late st Contact Info) Description 03/13/2025 Prolebrityt Message Enc [facility] Medical Group Family Medicine - [place] [address] [facility], [address] [place] [phone] Doris Ruano DO [address] [place], [place] [phone] Contrave Social History Tobacco Use Types Packs/Day Years Used Date Smoking Tobacco: Never Passive Smoke Exposure: Never Smokeless Tobacco: Never Comments:na Alcohol Use Standard Drinks/Week Comments No 0 (1 standard drink = 0.6 oz pur e alcohol) PHQ-2 Answer Date Recorded Patient Health Questionnaire-2 Score 2 01/03/2025 Comments No Sex and Gender Information Value Date Recorded Sex Assigned at Female 10/23/2022 6:59 AM RIP SAWYER Legal Sex Female 5:47 PM CDT Gender Identity Female 10/23/2022 6:59 AM RIP SAWYER Sexual Orientation Straight 10/23/2022 6: 59 AM RIP SAWYER documented as of this encounter Functional Status [...] documented as of this encounter Care Teams Pulp Refiner Operator Relationship Specialty Start Date End Date Doris Ruano DO [address] [place] [address] PCP - General FAMILY PRACTICE 08/25/22 documented as of this encounter
--- OUTSIDE RECORDS SUMMARY | 2025-06-07 11:48 | XMS_ITS | Encounter Summary ---
Author Organization [facility] Address [address] [place] [address] Care Team Providers Care Developmental Education Instructor Name Role Phone Doris Ruano DO Primary Care Provider [phone] Encounter Details Date Type Department Care Team (Late st Contact Info) Description 03/15/2024 Nimb[employer] (formerly [employer]) Message Enc [facility] Medical Group Family Medicine - [place] [address] [facility], [address] [place] [phone] Doris Ruano DO [address] [place] [address] [employer] Social History Tobacco Use Types Packs/Day Years Used Date Smoking Tobacco: Never Smokeless Tobacco: Never Comments:na Alcohol Use Standard Drinks/Week Comments No 0 (1 standard drink = 0.6 oz pur e alcohol) PHQ-2 Answer Date Recorded Patient Health Questionnaire-2 Score 0 12/04/2022 Comments No Sex and Gender Information Value Date Recorded Sex Assigned at Female 10/23/2022 6:59 AM GROUP SUPERVISOR YARD Legal Sex Female 5:47 PM CDT Gender Identity Female 10/23/2022 6:59 AM GROUP SUPERVISOR YARD Sexual Orientation Straight 10/23/2022 6: 59 AM GROUP SUPERVISOR YARD documented as of this encounter Functional Status [...] Depression Total Score: 17 022 11:23 AM GROUP SUPERVISOR YARD documented as of this encounter Care Teams Developmental Education Instructor Relationship Specialty Start Date End Date Doris Ruano DO [address] [place] [address] PCP - General FAMILY PRACTICE 08/25/22 documented as of this encounter
--- OUTSIDE RECORDS SUMMARY | 2025-06-07 11:48 | XMS_ITS | Encounter Summary ---
Author Organization [facility] Address [address] [place] [address] Care Team Providers Care Cable Braider Name Role Phone Doris Ruano DO Primary Care Provider [phone] Encounter Details Date Type Department Care Team (Late st Contact Info) Description 03/27/2024 Pretty Simple Message Enc [facility] Medical Group Family Medicine - [place] [address] [facility], [address] [place] [phone] Doris Ruano DO [address] [place], [place] [phone] [place] Social History Tobacco Use Types Packs/Day Years Used Date Smoking Tobacco: Never Smokeless Tobacco: Never Comments:na Alcohol Use Standard Drinks/Week Comments No 0 (1 standard drink = 0.6 oz pur e alcohol) PHQ-2 Answer Date Recorded Patient Health Questionnaire-2 Score 0 12/04/2022 Comments No Sex and Gender Information Value Date Recorded Sex Assigned at Female 10/23/2022 6:59 AM GEOPHYSICIST Legal Sex Female 5:47 PM CDT Gender Identity Female 10/23/2022 6:59 AM GEOPHYSICIST Sexual Orientation Straight 10/23/2022 6: 59 AM GEOPHYSICIST documented as of this encounter Functional Status [...] Depression Total Score: 17 022 11:23 AM GEOPHYSICIST documented as of this encounter Care Teams Cable Braider Relationship Specialty Start Date End Date Doris Ruano DO [address] [place] [address] PCP - General FAMILY PRACTICE 08/25/22 documented as of this encounter
--- OUTSIDE RECORDS SUMMARY | 2025-06-07 11:48 | XMS_ITS | Clinical Summary ---
Author Organization [facility] Address [facility] [place] [address] Care Team Providers Care Funds Transfer Clerk Name Role Phone Doris Ruano DO Primary Care Provider [phone] Allergies No known active allergies Medications acyclovir 200 mg capsule Take by mouth 2 (two) times daily. Unsure of dosage Active Cholecalciferol (VITAMIN D) 50 MCG (1999 UT) Cap Take 2,000 Int'l Units VWF:RCo by mouth daily. Active Fluticasone Propionate (XHANCE) 93 MCG/ACT Exhaler Suspension Active omeprazole (PRILOSEC) 40 MG capsuleIndicatio ns:Gastroesophag eal reflux disease without esophagitis Take 1 capsule (40 mg total) by mouth daily. 90 capsule 1 5 Active traZODone (DESYREL) 50 MG tabletIndication s:Primary insomnia Take 1 tablet (50 mg total) by mouth nightly at bedtime. 90 tablet 5 05/09/20 25 Active Problems Problem Noted Date Diagnosed Date Lumbar radiculopathy 05/03/2024 Sacroiliac joint pain 05/03/2024 Prediabetes 03/15/2024 Morbid obesity 03/15/2024 Kidney stone 12/12/2022 Recurrent herpes simplex 10/11/2020 Class 2 obesity due to exces s calories without serious comorbidity with body mass index (BMI) of 37.0 to 37.9 in adult 07/05/2019 Overview (08/25/2022): Last Assessment & Plan: Failed weight loss attempts include low carb, phentermine, exercise. Will try Saxenda, see if covered/affordable. Resolved Problems Problem Noted Date Diagnosed Date Resolved Date Otitis externa 06/26/2019 12/12/2022 Assessment & Plan (06/27/2019 10:34 AM CDT): Clinically improving with IV Ceftriaxone -Afebrile and all other vitals wnls -Pain control with 2 mg Morphine -Will discharge with PO ABx, Prednisone, and pain control Chest pain 12/12/2022 Abnormal EKG 12/12/2022 Encounters Date Type Department Care Team Description 04/10/2025 2:20 PM CDT Office Visit [facility] [place] [facility] [address] [facility], [address] [place] [phone] Doris Ruano DO Ear Problem (RT ear pain, started Thursday- [facility] ) 04/10/2025 Travel 03/13/2025 MyChart Message Enc [facility] [place] [facility] [address] [facility], [address] [place] [phone] Doris Ruano DO Contrave from Last 3 Months Immunizations Immunization Administration Dates Next Due Fluzone 6 Months+ Quad (0.5 mL Prefilled Syringe) 12/26/2022 Hepatitis A (Generic) 03/31/2001 Hepatitis B (Generic: Adult) 07/26/2018,03/17/20 18,02/10/2018 Influenza (Generic) 07/30/2021,07/11/2020 Influenza Adult (Generic) 06/28/2024,10/2022,07/05/2019,2017 MMR (MMRII) 03/17/2018,02/10/2018 PFIZER COVID-19 (ORIGINAL FORMULATION, PURPLE CAP) mRNA, LNP-S, PF, 30 MCG/0.3 ML DOSE 10/12/2020,09/21/2020 Tdap (Generic) 01/26/2018 Family History Medical History Relation Comments No Known Problems Father Arthritis Maternal Grandmother Breast Cancer Maternal Grandmother COPD Maternal Grandmother Cancer Maternal Grandmother Emphysema Maternal Grandmother Ovarian Cancer Maternal Grandmother Arthritis Mother Arthritis Paternal Grandmother Cancer Paternal Grandmother Diabetes Paternal Grandmother Heart Disease Paternal Grandmother Hyperlipidemia Paternal Grandmother Hypertension Paternal Grandmother Relation Status Comments Father Alive Maternal Grandmother Mother Alive Paternal Grandmother Social History Tobacco Use Types Packs/Day Years Used Date Smoking Tobacco: Never Passive Smoke Exposure: Never Smokeless Tobacco: Never Tobacco Cessation:Counseling Given: No Comments:na Alcohol Use Standard Drinks/Week Comments No 0 (1 standard drink = 0.6 oz pur e alcohol) PHQ-2 Answer Date Recorded Patient Health Questionnaire-2 Score 2 01/03/2025 Comments No Sex and Gender Information Value Date Recorded Sex Assigned at Female 10/23/2022 6:59 AM TOWING PILOT Legal Sex Female 5:47 PM CDT Gender Identity Female 10/23/2022 6:59 AM TOWING PILOT Sexual Orientation Straight 10/23/2022 6: 59 AM TOWING PILOT Last Filed Vital Signs Vital Sign Reading Time Taken Comments Blood Pressure 110/80 04/10/2025 2:27 PM CDT Pulse 77 04/10/2025 2:27 PM CDT Temperature 36.8 C (98.2 F) 04/10/2025 2:27 PM CDT Respiratory Rate 16 02/22/2025 10:5 1 AM CDT Oxygen Saturation 98% 04/10/2025 2:27 PM CDT Inhaled Oxygen Concentration - - Weight 109.5 kg (241 lb 6.4 oz) 04/10/2025 2:27 PM CDT Height 160 cm (5' 3) 02/22/2025 10:14 AM CDT Body Mass Index 42.76 02/22/2025 10:14 AM CDT Plan of Treatment Health Maintenance Due Date Last Done Comments Cervical Cancer Screening Pap Smear (Age 30 to 64) Every 3 Years 1984 Hepatitis C 2002 HPV Vaccines (1 - 3-dose SCDM series) 2011 Annual Physical 03/15/2025 03/15/2024, 12/30/2022 COVID-19 Vaccine ( season) 2025 10/12/2020, 09/21/2020 Mammogram Screening 01/19/2026 01/20/2024, 07/24/2022, 07/15/2021, Additional history exists DTaP, Tdap and Td Vaccines (2 - Td or Tdap) 01/27/2028 01/26/2018 Cervical Cancer Screening Pap with HPV Testing (Age 30 to 64) Every 5 Years 01/10/2029 01/11/2024 Cervical Cancer Screening with HPV 01/10/2029 Hepatitis B Vaccines Completed 07/26/2018, 03/17/2018, 02/10/2018 PHQ-2 (Physician [place]) Completed 01/03/2025 Meningococcal B Vaccine Aged Out No l onger eligible based on patient's age to complete this topic Meningococcal Vaccine Aged Out No melina tianna eligible based on patient's age to complete this topic Pneumococcal Vaccine: Pediatrics (0 to 5 Years) and At-Risk Patients (6 to 49 Years) Aged Out No longer eligible based on patient's age to complete this topic RSV Immunizations Under 20 Months Aged Out No longer eligible based on patient's age to complete this topic Procedures Procedure Name Priority Date/Time Associated Diagnosis Comments MG SCREENING W RHONDA BENITO DIGI Routine 01/20/2024 2:24 PM CDT Encounter for screening mammogram for malignant neoplasm of breast OUTSIDE CYTOPATH CERV/VAG INTERPRET (PAP) 01/11/2024 from Last 3 Months or Most Recently Relevant to Health Maintenance Results * MG SCREENING W RHONDA BENITO DIGI (01/20/2024 2:24 PM CDT) Anatomical Region Laterality Modality Breast Bilateral Mammography 01/20/2024 3:48 PM CDT Impressions 01/20/2024 3:50 PM CDT ===== IMPRESSION: ===== 1. Stable mammographic appearance with no new findings to suggest malignancy in either breast. Assessment: ACR BI-RADS 2 - BENIGN FINDING(S) Recommendation: 1:Routine Screening Bilateral Comments: Ordered By: BRIAN SNIDER Interpreted By: Felicity Myers, 01/20/2024 3:48 PM Narrative 01/20/2024 3:50 PM CDT EXAMINATION: Digital bilateral screening mammogram with 3-D tomosynthesis EXAM DATE/TIME: 01/20/2024 1:57 PM REASON FOR EXAM: screening Maternal grandmother with breast carcinoma. COMPARISON: 07/15/2021. 07/24/2022 Technique: Digital screening mammography of both breasts was performed in addition to 3-D Tomosynthesis technique. This study was read with the assistance of a computer-aided detection system. Tissue density: There are scattered areas of fibroglandular density. Findings: There is no new focal asymmetry, dominant mass lesion, area of skin thickening, or cluster of suspicious appearing calcifications in either breast to suggest malignancy. us Brian Snider MD MAMMO Final Result * PAP SMEAR WITH HPV (01/11/2024) 01/11/2024 [facility] Scanned SCANNING Final Resu lt from Last 3 Months or Most Recently Relevant to Health Maintenance [place] [address] [facility] Radha FINNEGAN JABIERRenaeCASIE [phone] Advance Directives * Full Code (Latest Code Status on File) Date Activated Date Inactivated Comments 06/26/2019 5:02 PM 06/27/2019 3:18 PM Care Teams Funds Transfer Clerk Relationship Specialty [place] [address] [place] [address] PCP - General FAMILY PRACTICE 08/25/22
--- OUTSIDE RECORDS SUMMARY | 2025-06-07 11:48 | XMS_ITS | Encounter Summary ---
Author Organization [facility] Address [address] [place] [address] Care Team Providers Care Stewarding Supervisor Name Role Phone Doris Ruano DO Primary Care Provider [phone] Encounter Details Date Type Department Care Team (Late st Contact Info) Description 07/26/2024 ChipCare Message Enc [facility] Medical [facility] Family Medicine - [place] [address] [facility], [address] [place] [phone] Doris Ruano DO [address] [place], [place] [phone] Covid Social History Tobacco Use Types Packs/Day Years Used Date Smoking Tobacco: Never Passive Smoke Exposure: Never Smokeless Tobacco: Never Comments:na Alcohol Use Standard Drinks/Week Comments No 0 (1 standard drink = 0.6 oz pur e alcohol) PHQ-2 Answer Date Recorded Patient Health Questionnaire-2 Score 0 07/13/2024 Comments No Sex and Gender Information Value Date Recorded Sex Assigned at Female 10/23/2022 6:59 AM ARTISTIC DIRECTOR Legal Sex Female 5:47 PM CDT Gender Identity Female 10/23/2022 6:59 AM ARTISTIC DIRECTOR Sexual Orientation Straight 10/23/2022 6: 59 AM ARTISTIC DIRECTOR documented as of this encounter Functional Status [...] Status No 06/26/2019 5:00 PM CDT Kerri Hasitngs RN Active documented as of this encounter [...] Assessment Noted Time PHQ-9 Depression Total Score: 0 07/13/20 24 10:49 AM CDT documented as of this encounter Care Teams Stewarding Supervisor Relationship Specialty Start Date End Date Doris Ruano DO [address] [place] [address] PCP - General FAMILY PRACTICE 08/25/22 documented as of this encounter
--- OUTSIDE RECORDS SUMMARY | 2025-06-07 11:48 | XMS_ITS | Encounter Summary ---
Author Organization [facility] Address [address] [place] [address] Care Team Providers Care Nurse Specialist Name Role Phone Doris Ruano DO Primary Care Provider [phone] Encounter Details Date Type Department Care Team (Late st Contact Info) Description 04/27/2024 Canary Calendar Message Enc [facility] Medical [facility] Family Medicine - [place] [address] [facility], [address] [place] [phone] Doris Ruano DO [address] [place], [place] [phone] Follow up Social History Tobacco Use Types Packs/Day Years Used Date Smoking Tobacco: Never Smokeless Tobacco: Never Comments:na Alcohol Use Standard Drinks/Week Comments No 0 (1 standard drink = 0.6 oz pur e alcohol) PHQ-2 Answer Date Recorded Patient Health Questionnaire-2 Score 0 12/04/2022 Comments No Sex and Gender Information Value Date Recorded Sex Assigned at Female 10/23/2022 6:59 AM CLAY PRESS OPERATOR Legal Sex Female 5:47 PM CDT Gender Identity Female 10/23/2022 6:59 AM CLAY PRESS OPERATOR Sexual Orientation Straight 10/23/2022 6: 59 AM CLAY PRESS OPERATOR documented as of this encounter Functional Status [...] Hastings RN Active documented in this encounter Progress Notes * Kiana Marie MA - 04/27/2024 2:34 PM CDTFrom: Yesenia James To: Dr. Doris Ruano Sent: 04/27/2024 1:50 PM CDT Subject: Follow up Hey doc! I???m coming up on a month of being on Zepbound. I???m going to get my refill next week. Iknow you want to see me in a month but I will not be home. Could we do a video call by chance? documented in this encounter Plan of Treatment Not on file documented as of this encounter Visit Diagnoses Not on filedocumented in this encounter Additional Health Concerns Assessment Noted Time PHQ-9 Depression Total Score: 17 022 11:23 AM CLAY PRESS OPERATOR documented as of this encounter Care Teams Nurse Specialist Relationship Specialty Start Date End Date Doris Ruano DO [address] [place] [address] PCP - General FAMILY PRACTICE 08/25/22 documented as of this encounter
--- OUTSIDE RECORDS SUMMARY | 2025-06-07 11:48 | XMS_ITS | Encounter Summary ---
Author Organization [facility] Address [address] [place] [address] Care Team Providers Care Senior Data Scientist Name Role Phone Doris Ruano DO Primary Care Provider [phone] Encounter Details Date Type Department Care Team (Late st Contact Info) Description 11/10/2022 EadBoxt Message Enc [facility] Medical [facility] Orthopedic & Sports Medicine - [place] [address] [place] [address] [phone] Handy Finn MD [address] [place], [place] [phone]- Nerve conduction study Social History Tobacco Use Types Packs/Day Years Used Date Smoking Tobacco: Never Smokeless Tobacco: Never Comments:na Alcohol Use Standard Drinks/Week Comments No 0 (1 standard drink = 0.6 oz pur e alcohol) PHQ-2 Answer Date Recorded Patient Health Questionnaire-2 Score 0 10/23/2022 Comments No Sex and Gender Information Value Date Recorded Sex Assigned at Female 10/23/2022 6:59 AM LICENSED MASSAGE THERAPIST Legal Sex Female 5:47 PM CDT Gender Identity Female 10/23/2022 6:59 AM LICENSED MASSAGE THERAPIST Sexual Orientation Straight 10/23/2022 6: 59 AM LICENSED MASSAGE THERAPIST COVID-19 Exposure Response Date Recorded In the last 10 days, have yo u been in contact with someone who was confirmed or suspected to have Coronavirus/COVID-19? No / Unsure 10/23/2022 6:48 AM LICENSED MASSAGE THERAPIST documented as of this encounter Functional Status [...] Depression Total Score: 17 022 11:23 AM LICENSED MASSAGE THERAPIST documented as of this encounter Care Teams Senior Data Scientist Relationship Specialty Start Date End Date Doris Ruano DO [address] [place] [address] PCP - General FAMILY PRACTICE 08/25/22 documented as of this encounter
--- OUTSIDE RECORDS SUMMARY | 2025-06-07 11:48 | XMS_ITS | Encounter Summary ---
Author Organization [facility] Address [address] [place] [address] Care Team Providers Care Electrocardiograph Operator Name Role Phone Doris Ruano DO Primary Care Provider [phone] Encounter Details Date Type Department Care Team (Late st Contact Info) Description 07/01/2024 Tucker Blair Message Enc [facility] Medical Group Family Medicine - [place] [address] [facility], [address] [place] [phone] Doris Ruano DO [address] [place], [place] [phone] Vision Social History Tobacco Use Types Packs/Day Years Used Date Smoking Tobacco: Never Smokeless Tobacco: Never Comments:na Alcohol Use Standard Drinks/Week Comments No 0 (1 standard drink = 0.6 oz pur e alcohol) PHQ-2 Answer Date Recorded Patient Health Questionnaire-2 Score 0 05/16/2024 Comments No Sex and Gender Information Value Date Recorded Sex Assigned at Female 10/23/2022 6:59 AM MICROWAVE RADIO TECHNICIAN Legal Sex Female 5:47 PM CDT Gender Identity Female 10/23/2022 6:59 AM MICROWAVE RADIO TECHNICIAN Sexual Orientation Straight 10/23/2022 6: 59 AM MICROWAVE RADIO TECHNICIAN documented as of this encounter Functional Status [...] Noted Time PHQ-9 Depression Total Score: 0 05/16/20 24 2:31 PM CDT documented as of this encounter Care Teams Electrocardiograph Operator Relationship Specialty Start Date End Date Doris Ruano DO [address] [place] [address] PCP - General FAMILY PRACTICE 08/25/22 documented as of this encounter
--- OUTSIDE RECORDS SUMMARY | 2025-06-07 11:48 | XMS_ITS | Encounter Summary ---
Author Organization [facility] Address [address] [place] [address] Care Team Providers Care Countersinker Name Role Phone Doris Ruano DO Primary Care Provider Encounter Details Date Type Department Care Team (Late st Contact Info) Description 02/10/2023 itzbigt Message Enc [facility] Medical Group Family Medicine - [place] [address] [facility], [address] [place] [phone] Doris Ruano DO [address] [place], [place] [phone] Hair loss, constantly hot, dizzy Social History Tobacco Use Types Packs/Day Years Used Date Smoking Tobacco: Never Smokeless Tobacco: Never Comments:na Alcohol Use Standard Drinks/Week Comments No 0 (1 standard drink = 0.6 oz pur e alcohol) PHQ-2 Answer Date Recorded Patient Health Questionnaire-2 Score 0 12/04/2022 Comments No Sex and Gender Information Value Date Recorded Sex Assigned at Female 10/23/2022 6:59 AM CONSTRUCTION AREA MANAGER Legal Sex Female 5:47 PM CDT Gender Identity Female 10/23/2022 6:59 AM CONSTRUCTION AREA MANAGER Sexual Orientation Straight 10/23/2022 6: 59 AM CONSTRUCTION AREA MANAGER documented as of this encounter Functional Status [...] 5:00 PM GEMT Kerri Hastings RN Active documented as of [...] Depression Total Score: 17 022 11:23 AM CONSTRUCTION AREA MANAGER documented as of this encounter Care Teams Countersinker Relationship Specialty Start Date End Date Doris Ruano DO [address] [place] [address] PCP - General FAMILY PRACTICE 08/25/22 documented as of this encounter
--- OUTSIDE RECORDS SUMMARY | 2025-06-07 11:48 | XMS_ITS | Encounter Summary ---
Author Organization [facility] Address [address] [place] [address] Care Team Providers Care Scada Engineer Name Role Phone Doris Ruano DO Primary Care Provider [phone] Encounter Details Date Type Department Care Team (Late st Contact Info) Description 09/04/2023 Accelera Message Enc [facility] Medical Group Family Medicine - [place] [address] [facility], [address] [place] [phone] Doris Ruano DO [address] [place], [place] [phone] D dimer Social History Tobacco Use Types Packs/Day Years Used Date Smoking Tobacco: Never Smokeless Tobacco: Never Comments:na Alcohol Use Standard Drinks/Week Comments No 0 (1 standard drink = 0.6 oz pur e alcohol) PHQ-2 Answer Date Recorded Patient Health Questionnaire-2 Score 0 12/04/2022 Comments No Sex and Gender Information Value Date Recorded Sex Assigned at Female 10/23/2022 6:59 AM CASE SUPERVISOR Legal Sex Female 5:47 PM CDT Gender Identity Female 10/23/2022 6:59 AM CASE SUPERVISOR Sexual Orientation Straight 10/23/2022 6: 59 AM CASE SUPERVISOR documented as of this encounter Functional Status [...] Depression Total Score: 17 022 11:23 AM CASE SUPERVISOR documented as of this encounter Care Teams Scada Engineer Relationship Specialty Start Date End Date Doris Ruano DO [address] [place] [address] PCP - General FAMILY PRACTICE 08/25/22 documented as of this encounter
--- OUTSIDE RECORDS SUMMARY | 2025-06-07 11:48 | XMS_ITS | Encounter Summary ---
Author Organization [facility] Address [address] [place] [address] Care Team Providers Care Weather Anchor Name Role Phone Doris Ruano DO Primary Care Provider [phone] Encounter Details Date Type Department Care Team (Late st Contact Info) Description 06/30/2024 Living Indie Message Enc [facility] Medical Group Family Medicine - [place] [address] [facility], [address] [place] [phone] Doris Ruano DO [address] [place], [place] [phone] pap smear Social History Tobacco Use Types Packs/Day Years Used Date Smoking Tobacco: Never Smokeless Tobacco: Never Comments:na Alcohol Use Standard Drinks/Week Comments No 0 (1 standard drink = 0.6 oz pur e alcohol) PHQ-2 Answer Date Recorded Patient Health Questionnaire-2 Score 0 05/16/2024 Comments No Sex and Gender Information Value Date Recorded Sex Assigned at Female 10/23/2022 6:59 AM HEALTH PROMOTION MANAGER Legal Sex Female 5:47 PM CDT Gender Identity Female 10/23/2022 6:59 AM HEALTH PROMOTION MANAGER Sexual Orientation Straight 10/23/2022 6: 59 AM HEALTH PROMOTION MANAGER documented as of this encounter Functional [...] documented as of this encounter Care Teams Weather Anchor Relationship Specialty Start Date End Date Doris Ruano DO [address] [place] [address] PCP - General FAMILY PRACTICE 08/25/22 documented as of this encounter
--- OUTSIDE RECORDS SUMMARY | 2025-06-07 11:48 | XMS_ITS | Encounter Summary ---
Author Organization [facility] Address [address] [place] [address] Care Team Providers Care Residential Mental Health Worker Name Role Phone Doris Ruano DO Primary Care Provider [phone] Encounter Details Date Type Department Care Team (Late st Contact Info) Description 06/01/2024 Riot Games Message Enc [facility] Medical Group Family Medicine - [place] [address] [facility], [address] [place] [phone] Doris Ruano DO [address] [place], [place] [phone] Medicine Social History Tobacco Use Types Packs/Day Years Used Date Smoking Tobacco: Never Smokeless Tobacco: Never Comments:na Alcohol Use Standard Drinks/Week Comments No 0 (1 standard drink = 0.6 oz pur e alcohol) PHQ-2 Answer Date Recorded Patient Health Questionnaire-2 Score 0 05/16/2024 Comments No Sex and Gender Information Value Date Recorded Sex Assigned at Female 10/23/2022 6:59 AM CARD BRUSHER Legal Sex Female 5:47 PM CDT Gender Identity Female 10/23/2022 6:59 AM CARD BRUSHER Sexual Orientation Straight 10/23/2022 6: 59 AM CARD BRUSHER documented as of this encounter Functional Status [...] documented as of this encounter Care Teams Residential Mental Health Worker Relationship Specialty Start Date End Date Doris Ruano DO [address] [place] [address] PCP - General FAMILY PRACTICE 08/25/22 documented as of this encounter
[2025-06-07 12:25] LABS: Hematocrit 42.9 % (37.0-47.0); Hemoglobin 14.1 g/dL (12.0-15.0); Mean Corpuscular HGB Conc 32.9 g/dl (32-36); Mean Corpuscular Hemoglobin 29.0 pg (26-34); Mean Corpuscular Volume 88.3 fl (80-100); Platelet Count Result 286 k/mm3 (150-375); Red Blood Count 4.86 M/mm3 (4.2-5.4); White Blood Count 6.9 K/mm3 (4.5-10.0)
== END 2025-06-07 10:24 | disposition home or self-care (01) ==
PROVIDERS: PCP Family Medicine; Visit Provider Obstetrics & Gynecology
DX: N92.6 Irregular menstruation, unspecified (principal)
CPT/HCPCS: 36415; 85027

== ENCOUNTER 2025-06-08 00:32 | Day surgery (SDC) | payer BC, SELFPAY ==
[2025-06-01 09:21] VITALS: BMI 42.5
--- NOTE | 2025-06-01 09:30 | PC.NURSE ---
Report to the Outpatient Waiting Room, entrance under the green pavilion located off [facility], at time _0600_ on date _[id number]_. Planned Procedure Time: _0730_.? Time changes happen often and if your time is changed the preop area will call you the afternoon before. - You and your visitor will be asked to self-screen and do not enter if you have any COVID symptoms. Please call surgeon if you need to reschedule. - A mask is optional within the hospital at this time. Patients may have clear liquids (water, carbonated beverages, clear teas, apple juice) until 3 hours prior to surgery with a maximum of 20 ounces. - No food from midnight until time of surgery and no smoking, or chewing tobacco (or any form of nicotine). No chewing gum, candy or mints. Take only the following medications with a SIP of water on the morning of surgery: ___None____ DO NOT STOP ANY OF YOUR OTHER PRESCRIPTION MEDICATIONS PRIOR TO SURGERY EXCEPT THE FOLLOWING Hold all vitamins and supplements for 3 days per anesthesiologist. Medications to discontinue per physician Date to take last ckzn___[phone]____ Please no make-up, nail slovenian, hairspray, perfume, deodorant, or body powder the day of surgery.? No jewelry (including any body piercings) or valuables the day of surgery, leave them at home.? Please take a shower or bath the night before, or the morning of, surgery with an antibacterial soap.? Wear comfortable, loose fitting clothing.? - Jewelry must be removed prior to entering the operating room.? Rings and piercings that are not removed may be cut off. - The hospital will not accept responsibility for valuables.? - Please leave all valuables, including medications, at home the day of surgery. If you are going home after surgery, a licensed patrol driver must drive you home.? - NO public transportation without another adult if you receive anesthesia. - We recommend that an adult stay with you for 24 hours following discharge. - We also recommend that you do not drive, make important decision, drink alcoholic beverages, or take any drugs that were not prescribed by your health care provider for at least 24 hours after your discharge time. Follow any additional instructions given to you from your surgeon. Telephone instructions given to __Candice___and asked if any additional questions and then verbalized understanding. Patient advised to call surgeon office or pre surgery nurse liaison [phone] if any additional questions.
--- NOTE | 2025-06-07 10:45 | PM.IMHP ---
H&P: HPI History of Present Illness Date/Time: 06/07/25 10:45 39-year-old female presents for treatment of heavy vaginal bleeding. Cycles are regular with 5-7 day cycle lasting 3-5 days with heavy clotting cramping. Ultrasound reveals mildly enlarged uterus with small fibroid. Patient also desires permanent sterilization the form of bilateral salpingectomy, with discussed the permanence failure rate, ectopic risk as well as regret. Chief Complaint: menometrorrhagia Review of Systems Review of Systems: All systems reviewed & are unremarkable except as noted in HPI and below PMFSH Past Medical History Medical History Screening mammogram, encounter for Irregular periods Epilepsy Kidney stone HSV-2 (herpes simplex virus 2) infection Intramural uterine fibroid 2019 Nervous breakdown at 21 yo Anxiety Mammogram normal 07/15/21 benign/recommend screening Surgical History Surgical History History of hysteroscopy (05/21/23) suction D&C missed AB / Poc Family History Family History Grandparent Breast cancer maternal grandmother Ovarian cancer maternal grandmother Carcinoma of colon maternal grandmother Social History Social History Smoking status: Never smoker Second hand tobacco smoke exposure: Yes Alcohol intake: current Drinks per week: 1 Alcohol use details: ONE DRINK PER MONTH Substance use: former Substance use type: does not use and marijuana Last use: 2016 Do You Feel Safe in your Home?: Yes Lack of Transportation: No Lack of Food: Never True Current Housing: I Have Housing Concerned About Future Housing: No Difficulty Paying Gas/Electric Bills: No Difficulty Paying for Meds: No Currently Unemployed: No Education: Associate Degree Difficulty w/ Childcare or Family Care: No Living arrangements: with family Additional living arrangements comments: Occupation/Education: occupation 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 Gender identity (if verbalized by the patient): Female Sexual Orientation (if Verbalized by the Patient): Straight or Heterosexual Spiritual care concerns: No Meds Home Medications and Allergies Home Medications ?Medication ?Instructions ?Recorded ?Confirmed ?Type valacyclovir 500 mg tablet 500 mg PO TID PRN hsv 05/21/23 06/01/25 History cholecalciferol (vitamin D3) 50 50 mcg PO DAILY 07/25/24 06/01/25 History mcg (2,000 unit) capsule (Vitamin D3) multivitamin-ferrous 1 tablet PO DAILY 07/25/24 06/01/25 History fumarate-folic acid 18 mg-400 mcg tablet (Centrum) omeprazole 40 mg capsule,delayed 40 mg PO DAILY 06/01/25 06/01/25 History release trazodone 50 mg tablet 50 mg PO HS 06/01/25 06/01/25 History Allergies Allergy/AdvReac Type Severity Reaction Status Date / Time No Known Allergies Allergy Verified 06/01/25 09:20 Exam Resp: Effort & Inspection: normal respiratory effort Auscultation: clear to auscultation bilaterally Cardio: Rate: regular rate Rhythm: regular rhythm GI: Inspection: normal to inspection Auscultation: normal bowel sounds : External Female Exam: normal external appearance Speculum Exam - Vagina: normal appearance of the vagina Speculum Exam - Cervix: normal appearance of the cervix Bimanual exam- vagina & uterus: enlarged ( 8 to 10 week size) Bimanual Exam- Adnexa, other: normal adnexae Assessment and Plan Assessment and plan (1) Menorrhagia: Code(s): N92.0 - Excessive and frequent menstruation with regular cycle Status: Acute (2) Enlarged uterus: Code(s): N85.2 - Hypertrophy of uterus Status: Acute (3) Encounter for female sterilization procedure: Code(s): Z30.2 - Encounter for sterilization Status: Acute Plan 1. Hysteroscopy with D&C and endometrial ablation 2. Laparoscopic bilateral salpingectomy
[2025-06-08] VITALS (7 sets, daily range): BP systolic 94–123; BP diastolic 54–71; PULSE 63–96; RESP 10–16; TEMP 36.2–36.7; O2SAT 92–100
--- OUTSIDE RECORDS SUMMARY | 2025-06-08 00:35 | XMS_ITS | Patient Health Record ---
Author Organization 1 OF Vikki fernandez [facility] Address [address] [facility] [address] [place] [address] Care Team Providers Care Telecommunications Field Technician Name Role Phone Kiana Paiz Primary Care Provider Vinicio Kat Unavailable Reason For Referral No Information Medications [...] Insured Coverage Start Date Coverage End Date [facility] [address] [place] [address] [id number] Dajuan James Spouse - patient is the spouse of the insured Medical (General) History Medical History History ICD Code Vein Problems Surgical History Surgery Date(Month/Year)
--- OUTSIDE RECORDS SUMMARY | 2025-06-08 00:35 | XMS_ITS | Clinical Summary ---
Author Organization [facility] Address [address] [place] [address] Care Team Providers Care Plastic Injection Mold Maker Name Role Phone Doris Ruano DO Primary Care Provider [phone] Source Comments [facility],non-owned Affiliates and Associated Physician Practices is amultiple site organization consisting of ambulatory clinics and hospital sitesin [place], [place], [place] and [place]. This disclosure is being madepursuant to the Care Everywhere program and may not contain all information available regarding this patient. Last updated 18.[facility] Allergies No known active allergies Medications * Be aware that medications may not be up to date on this document. Alwaysverify current medications with the patient. multivitamin daily tablet Take 1 (one) tablet by mouth daily with food Active vitamin D, ergocalciferol, (Drisdol) 1.25 MG (00849 UT) capsule Take 1 (one) capsule by mouth every 30 days Active Active Problems Problem Noted Date Diagnosed Date History of multiple miscarriages 10/04/2024 Assessment & Plan (10/04/2024 9:29 AM AUTO CLAIM REPRESENTATIVE): Yesenia is desiring . Her first was [...] 10/04/2024 Assessment & Plan (10/04/2024 9:28 AM AUTO CLAIM REPRESENTATIVE): She is at risk of recurrence. Uterine [...] on file Legal Sex Female 5:35 AM AUTO CLAIM REPRESENTATIVE Gender Identity Not on file Sexual Orientation Not on file Last Filed Vital Signs Vital Sign Reading Time Taken Comments Blood Pressure 107/72 10/03/2024 10:44 AM AUTO CLAIM REPRESENTATIVE Pulse 70 10/03/2024 10:44 AM AUTO CLAIM REPRESENTATIVE Temperature - - Respiratory Rate 18 10/03/2024 10:44 AM AUTO CLAIM REPRESENTATIVE Oxygen Saturation - - Inhaled Oxygen Concentration - - Weight 108.9 kg (240 lb) 10/03/2024 10:44 AM AUTO CLAIM REPRESENTATIVE Height 160 cm (5' 3) 10/03/2024 10:44 AM AUTO CLAIM REPRESENTATIVE Body Mass Index 42.51 10/03/2024 10:44 AM AUTO CLAIM REPRESENTATIVE Plan of Treatment Health Maintenance Due Date [...] patient's age to complete this topic Insurance 20:[address] [place] [address] ANTHEM Care Teams Plastic Injection Mold Maker Relationship Specialty Start Date End Date Doris Ruano DO [address] [place] [address] PCP - General Family Medicine 04/04/24
--- NOTE | 2025-06-08 07:04 | WPDANESEPPF ---
Anes - Initial Pre Proc Eval Procedure: Operation Date: 06/08/25 09:00 Proposed Procedures p Hysteroscopy Dilation and Curettage with Anna Endometrial Ablation, Laparoscopic Bilateral Salpingectomy - Brian Snider MD Date/Time: 06/08/25 07:04 Surgeon: Brian Snider MD Pre Op Diagnosis: menorrhagia Patient Data Age: 39 Gender: F Height: 1.6 m Weight: 109 kg Allergies Allergy/AdvReac Type Severity Reaction Status Date / Time No Known Allergies Allergy Verified 06/01/25 09:20 Home Medications ?Medication ?Instructions ?Recorded ?Confirmed ?Type valacyclovir 500 mg tablet 500 mg PO TID PRN hsv 05/21/23 06/01/25 History cholecalciferol (vitamin D3) 50 50 mcg PO DAILY 07/25/24 06/01/25 History mcg (2,000 unit) capsule (Vitamin D3) multivitamin-ferrous 1 tablet PO DAILY 07/25/24 06/01/25 History fumarate-folic acid 18 mg-400 mcg tablet (Centrum) omeprazole 40 mg capsule,delayed 40 mg PO DAILY 06/01/25 06/01/25 History release trazodone 50 mg tablet 50 mg PO HS 06/01/25 06/01/25 History Patient hx anesthesia problems: none Family hx anesthesia problems: none Results Review: All pre-operative results and documents have been reviewed as part of the pre-operative evaluation. [facility] Past Medical History Medical History Screening mammogram, encounter for Irregular periods Epilepsy Kidney stone HSV-2 (herpes simplex virus 2) infection Intramural uterine fibroid 2019 Nervous breakdown at 21 yo Anxiety Mammogram normal 07/15/21 benign/recommend screening Surgical History Surgical History History of hysteroscopy (05/21/23) suction D&C missed AB / Poc Family History Family History Grandparent Breast cancer maternal grandmother Ovarian cancer maternal grandmother Carcinoma of colon maternal grandmother Social History Social History Smoking status: Never smoker Second hand tobacco smoke exposure: Yes Alcohol intake: current Drinks per week: 1 Alcohol use details: ONE DRINK PER MONTH Substance use: former Substance use type: does not use and marijuana Last use: 2015 Do You Feel Safe in your Home?: Yes Lack of Transportation: No Lack of Food: Never True Current Housing: I Have Housing Concerned About Future Housing: No Difficulty Paying Gas/Electric Bills: No Difficulty Paying for Meds: No Currently Unemployed: No Education: Associate Degree Difficulty w/ Childcare or Family Care: No Living arrangements: with family Additional living arrangements comments: Occupation/Education: occupation 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 Gender identity (if verbalized by the patient): Female Sexual Orientation (if Verbalized by the Patient): Straight or Heterosexual Spiritual care concerns: No Anes - Eval Final PreProcedure Day of Procedure 06/08/25 07:04 Patient weight: morbidly obese Heart: regular rate and rhythm Lungs: clear to auscultation Airway: Mallampati scale class 1 Neurological: alert and oriented Last oral intake: >/= 8 hours ASA classification: III Emergent: no Anesthetic plan: proceed Anesthesia type and monitoring: general ETT and standard monitoring Results Review: All pre-operative results and documents have been reviewed as part of the pre-operative evaluation. Informed Consent: The patient's anesthetic plan and its attendant risks and benefits were discussed with the patient/family/POA. Questions were solicited and answers provided to the satisfaction of the patient/family/POA.
[2025-06-08 07:27] LABS: BEDSIDEPREGUCG Negative (Negative)
[2025-06-08] MEDS: ACETAMINOPHEN 500 MG TABLET 1000 MG PO (07:35)
[2025-06-08] MEDS: LACTATED RINGERS 1,000 ML 30 ML IV CONT ×2 (07:40→10:16)
[2025-06-08] MEDS: KETOROLAC 15 MG/ML VIAL (*BKC) IV PUSH (07:42)
[2025-06-08] MEDS: SCOPOLAMINE 1 MG PATCH 1 PATCH TRANSDERM (07:48)
--- NOTE | 2025-06-08 08:42 | WPDHPUPDATE1 ---
History and Physical Update Update Date/Time: 06/08/25 08:42 History and Physical has been reviewed, including an updated exam of the patient. There are NO changes in the patient's condition. Risks, benefits, and alternatives have been discussed and questions answered. Patient agrees to proceed with procedure.
[2025-06-08] MEDS: ceFAZolin 2 GM in SODIUM CHLORIDE 0.9% IV 50 ML 100 ML IVPB (09:35)
--- NOTE | 2025-06-08 09:37 | S_PTH ---
PATIENT: Yesenia James LOC: [facility] U#:[id number] AGE/SX: 39/F ROOM: RE06/08/[address]: Brian Snider MD : [id number] BED: DIS: 06/08/2025 SPEC #: [id number] RECD: 06/08/25 10:33 STATUS: GAGE RERandee #: [id number] ROHIT: 06/08/25 09:[address]: Brian Snider DEPT: [facility] Surgical RECD BY: Betsy Garza ENTERED: 06/08/25 10:33 SP TYPE: Surgical OTHR DR: Doris Ruano, DO Tissues: A - Fallopian Tube Bilateral B - Endometrial Curettings Procedures: Gross and Microscopic Level 2 Hematoxylin and Eosin Stain Gross and Microscopic Level 4
--- NOTE | 2025-06-08 10:10 | W.PM.PROC2 ---
Procedure Note - Detailed Date of Procedure 06/08/25 Pre-op Diagnosis 1. Menometrorrhagia 2. Undesired fertility Post-op Diagnosis Same Procedure Performed 1. Hysteroscopy with uterine curettings 2. Anna endometrial ablation 3. Laparoscopic bilateral salpingectomy Surgeon Brian Snider MD Anesthesia General Findings uterus tubes and ovaries without abnormality Description of Procedure patient prepped draped in usual manner for this procedure. Cervical instruments were placed for uterine mobility in the case. Attention was placed the abdomen and trocars were placed under direct visualization. Mesial salpinx was cauterized and cut and bilaterally tubes removed difficulty. There was no bleeding, gas was allowed to escape, incisions approximated using 4-0 Monocryl. Cervix was then dilated to allow the hysteroscope to be placed which revealed slightly thickened tissue. Curettings were obtained and the Anna instrument was placed. Cavity assessment performed and instrument activated. Thorough destruction was noted and at this point the procedure was considered terminated. Patient was sent to recovery room in stable condition. Estimated Blood Loss 10 Drains No Packing No Pathology Yes Complications No immediate complications Condition Stable Disposition PACU [facility] Billing Surgery - Charge Forward: Surgery Billing
[2025-06-08] MEDS: fentaNYL CITRATE INJ (*CRX) 100 MCG/2 ML VIAL 25 MCG IV PUSH ×6 (10:15→10:42)
[2025-06-08] MEDS: oxyCODONE HCL (*CRX) 5 MG TAB IR PO (11:16)
== END 2025-06-08 12:25 | disposition home or self-care (01) ==
PROVIDERS: PCP Family Medicine; Visit Provider Obstetrics & Gynecology
PROC: 0UDB8ZZ Extraction of Endometrium, Via Natural or Artificial Opening Endoscopic (ICD-10-PCS; CPT 58558; principal; 2025-06-08 09:00)
DX: N92.1 Excessive and frequent menstruation with irregular cycle (principal); Z30.2 Encounter for sterilization; E66.01 Morbid (severe) obesity due to excess calories; Z68.41 Body mass index [BMI] 40.0-44.9, adult
CPT/HCPCS: 58661; 58563; 88302; 88305; J0690; A9270; J1100; J1885; J2003; J2250; J2405; J2704; J3010; J7120

== ENCOUNTER 2025-08-29 08:48 | Outpatient (CLI) | payer BC, SELFPAY ==
--- NOTE | ~2025-08-29 | MR_ITS ---
MR breast BI wo/w con 08/30/2025 8:00 [employer] INDICATION: Nonmasslike enhancement seen on prior MRI examination dated 12/08/2024. Follow-up recommended. TECHNIQUE: MRI of the breasts perform using standard protocol pre-and post IV contrast with the following sequences: Axial T2 STIR, axial T1, axial vibrant T1 with fat suppression precontrast and multiphasic postcontrast. 20 cc MultiHance administered intravenously. COMPARISON: Comparison to multiple prior studies sequentially, with oldest reviewed study dated 08/29/2025. FINDINGS: The breasts are almost entirely fatty. There are small bilateral intramammary lymph nodes. Right breast: There are no abnormalities on the precontrast sequences. There is moderate background parenchymal enhancement. No enhancing lesions following contrast administration. No areas of enhancement meeting threshold criteria on CAD analysis. No evidence of signal abnormalities in the axillary or internal mammary node distributions. LEFT BREAST: No signal abnormalities on precontrast sequences. There is moderate background parenchymal enhancement. No enhancing lesions following contrast administration. No areas of enhancement meeting threshold criteria on CAD analysis. No evidence of signal abnormalities in the axillary or internal mammary node distributions.] IMPRESSION: 1: Right breast: Negative. No evidence of malignancy. BI-RADS category 1. Recommend annual mammography follow-up. 2: Left breast: Negative. No evidence of malignancy. BI-RADS category 1. Recommend annual mammography follow-up. Follow-up MRI may be useful for supplementing mammographic evaluation as clinically indicated. Reviewed, dictated and finalized at location B. [employer] IMPRESSION: 1: Right breast: Negative. No evidence of malignancy. BI-RADS category 1. Recommend annual mammography follow-up. 2: Left breast: Negative. No evidence of malignancy. BI-RADS category 1. Re commend annual mammography follow-up. Follow-up MRI may be useful for supplementing mammographic evaluation as clinic ally indicated.
== END 2025-08-29 08:49 | disposition home or self-care (01) ==
PROVIDERS: PCP Family Medicine; Visit Provider Surgery
DX: R92.8 Other abnormal and inconclusive findings on diagnostic imaging of breast (principal); N63.15 Unspecified lump in the right breast, overlapping quadrants; N63.25 Unspecified lump in the left breast, overlapping quadrants
CPT/HCPCS: 77049; A9577; C8908